=== PATIENT | female | born 1935 | race Caucasian/White ===

== ENCOUNTER 2017-07-09 10:27 | Observation (INO) | payer MEDICARE, OTHER ==
[~2017-07-09 10:27] MED LIST: DIGOXIN 0.125 MG TABLET PO SCH
--- NOTE | 2017-07-09 10:48 | ER Document Report ---
ED Syncope and Near Syncope - General Stated Complaint: DIZZINESS Time Seen by Provider: 07/09/17 10:41 Mode of Arrival: Medic Information source: Patient TRAVEL OUTSIDE OF THE [place] IN LAST 30 DAYS: No - HPI Patient complains to provider of: Nearly fainting Episode witnessed (by whom): Yes - DAUGHTER Single episoded occurred: THIS AM Symptoms prior to episode: Dizziness, Lightheaded. No: Chest pain, Nausea/ vomiting, Palpitations, Racing heart, Short of breath Duration of preceeding symptoms: 1 MIN. Position/Activity at time of episode: Standing Quality of pain: No pain Context: Almost passed out, [place] faint. 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 - Related Data Allergies/Adverse Reactions: No Known Allergies Allergy (Unverified 07/09/17 10:53) Home Medications: Current Home Medications Amlodipine Besylate 10 mg PO DAILY 07/09/17 [History] Clopidogrel Bisulfate [Clopidogrel] 75 mg PO DAILY 07/09/17 [History] Digoxin [Digox] 250 mcg PO DAILY 07/09/17 [History] Famotidine 40 mg PO DAILY 07/09/17 [History] Furosemide [Lasix] 40 mg PO DAILY 07/09/17 [History] Lansoprazole 30 mg PO DAILY 07/09/17 [History] Metoprolol Tartrate [Lopressor] 50 mg PO BID 07/09/17 [History] Past Medical History - General Information source: Patient - Social History Smoking Status: Never Smoker Cigarette use (# per day): No Chew tobacco use (# tins/day): No Smoking Education Provided: No Frequency of alcohol use: None Drug Abuse: None Lives with: Family Family History: Reviewed & Not Pertinent Patient has suicidal ideation: No Patient has homicidal ideation: No - Past Medical History Cardiac Medical History: Reports: Hx Atrial Fibrillation, Hx Hypertension Pulmonary Medical History: Reports: None Neurological Medical History: Reports: None Endocrine Medical History: Reports: None Renal/ Medical History: Reports: None Malignancy Medical History: Reports: None GI Medical History: Reports: None Psychiatric Medical History: Reports: None Review of Systems - Review of Systems Constitutional: Weakness EENT: No symptoms reported Cardiovascular: See HPI Respiratory: No symptoms reported Gastrointestinal: No symptoms reported Genitourinary: No symptoms reported Musculoskeletal: No symptoms reported Skin: No symptoms reported Neurological/Psychological: No symptoms reported Physical Exam - Vital signs Vitals: Resp Pulse Ox 19 98 07/09/17 10:54 07/09/17 10:54 Interpretation: Normal - General General appearance: Appears well, Alert In distress: None - HEENT Head: Normocephalic Eyes: Normal Conjunctiva: Normal Ears: Normal Nasal: Normal Mouth/Lips: Other - POOR DENTITION Neck: Normal - Respiratory Respiratory status: No respiratory distress Breath sounds: Normal - Cardiovascular Rhythm: Irregularly irregular Heart sounds: Normal auscultation Murmur: No - Abdominal Inspection: Normal Distension: No distension Bowel sounds: Normal - Back Back: Normal - Extremities General upper extremity: Normal inspection General lower extremity: Normal inspection. No: Edema - Neurological Neuro grossly intact: Yes Cognition: Normal Orientation: AAOx4 - Psychological Associated symptoms: Normal affect, Normal mood - Skin Skin Temperature: Warm Skin Moisture: Dry Skin Color: Normal Skin Turgor: Elastic Course - Vital Signs Vital signs: Temp Pulse Resp BP Pulse Ox 21 H 118/67 100 07/09/17 13:00 07/09/17 12:01 07/09/17 13:00 - Laboratory Result Diagrams: 07/09/17 11:00 07/09/17 11:00 Laboratory results interpreted by me: 07/09/17 11:00 BUN 33 H Creatinine 1.68 H Est GFR ( Amer) 35 L Est GFR (Non-Af Amer) 29 L Glucose 137 H Direct Bilirubin 0.5 H AST 39 H Total Protein 8.9 H - Diagnostic Test Radiology reviewed: Image reviewed, Reports reviewed - EKG Interpretation by Me EKG shows normal: abnormal: Sinus rhythm Rate: Normal Rhythm: A.Fib, PVC's - Consults DR. BARNEY Time consulted: 13:08 Consulted provider: will see as inpatient Discharge - Discharge Clinical Impression: Symptomatic bradycardia, Atrial fibrillation with controlled ventricular response Condition: Good Disposition: ADMITTED OBSERVATION Admitting Provider: Eileen Unit Admitted: Telemetry
--- NOTE | 2017-07-09 10:57 | EKG REPORT ---
SEVERITY:- ABNORMAL ECG - ATRIAL FIBRILLATION, V PACED BEATS PAIRED VENTRICULAR PREMATURE COMPLEXES NONSPECIFIC T ABNORMALITIES, DIFFUSE LEADS : Confirmed by: Eliecer Martinez 09-Jul-2017 10:56:10
[2017-07-09 11:16] LABS: ABSOLUTE EOSINOPHILS # (AUTO) 0.2 10^3/uL (0.0-0.6); ABSOLUTE LYMPHOCYTES (AUTO) 0.9 10^3/uL (0.5-4.7); ABSOLUTE MONOCYTES (AUTO) 0.5 10^3/uL (0.1-1.4); ABSOLUTE NEUT (AUTO) 4.7 10^3/uL (1.7-8.2); BASOPHILS % (AUTO) 0.7 % (0-2); EOSINOPHILS % (AUTO) 2.8 % (0-6); HEMATOCRIT 40.5 % (36.0-47.0); HEMOGLOBIN 13.6 g/dL (12.0-15.5); HGB HCT DIFFERENCE 0.3; LYMPHOCYTES % (AUTO) 14.7 % (13-45); MEAN CORPUSCULAR HEMOGLOBIN 30.6 pg (27.0-33.4); MEAN CORPUSCULAR HGB CONC 33.5 g/dL (32.0-36.0); MEAN CORPUSCULAR VOLUME 92 fl (80-97); MONOCYTES % (AUTO) 7.3 % (3-13); RED BLOOD COUNT 4.43 10^6/uL (3.72-5.28); RED CELL DISTRIBUTION WIDTH 13.9 % (11.5-14.0); SEGMENTED NEUTROPHILS % (AUTO) 74.5 % (42-78); WHITE BLOOD COUNT 6.3 10^3/uL (4.0-10.5)
[2017-07-09 11:48] LABS: CREATINE KINASE MB 1.34 ng/mL (<4.55); TROPONIN I 0.016 ng/mL
[2017-07-09 11:52] LABS: ALANINE AMINOTRANSFERASE 20 U/L (9-52); ALBUMIN 4.6 g/dL (3.5-5.0); ALKALINE PHOSPHATASE 92 U/L (38-126); ANION GAP 13 (5-19); ASPARTATE AMINO TRANSFERASE 39 U/L (14-36); BILIRUBIN,DIRECT 0.5 mg/dL (0.0-0.4); BILIRUBIN,TOTAL 1.2 mg/dL (0.2-1.3); BLOOD UREA NITROGEN 33 mg/dL (7-20); CALCIUM 9.8 mg/dL (8.4-10.2); CARBON DIOXIDE 28 mmol/L (22-30); CHLORIDE 101 mmol/L (98-107); CREATINE KINASE 61 U/L (30-135); CREATININE RESULT 1.68 mg/dL (0.52-1.25); GLUCOSE 137 mg/dL (75-110); POTASSIUM 4.4 mmol/L (3.6-5.0); SODIUM 142.1 mmol/L (137-145); TOTAL PROTEIN 8.9 g/dL (6.3-8.2)
--- NOTE | 2017-07-09 12:06 | RADIOLOGY REPORT (SQ) ---
EXAM DESCRIPTION: CHEST SINGLE VIEW COMPLETED DATE/TIME: 07/09/2017 11:59 am REASON FOR STUDY: SYNCOPE COMPARISON: None. EXAM PARAMETERS: NUMBER OF VIEWS: One view. TECHNIQUE: Single frontal radiographic view of the chest acquired. RADIATION DOSE: NA LIMITATIONS: None. FINDINGS: LUNGS AND PLEURA: No opacities, masses or pneumothorax. No pleural effusion. MEDIASTINUM AND HILAR STRUCTURES: No masses. Contour normal. HEART AND VASCULAR STRUCTURES: Cardiomegaly without CHF. BONES: Dextroscoliosis. HARDWARE: None in the chest. OTHER: No other significant finding. IMPRESSION: 1. Cardiomegaly without CHF. 2. Scoliosis. TECHNICAL DOCUMENTATION: JOB ID: [id number]
[2017-07-09] MEDS ORDERED: FUROSEMIDE 40 MG TABLET PO SCH (18:00)
[2017-07-09] MEDS ORDERED: DIGOXIN 0.25 MG TABLET PO SCH ×2 (18:00)
--- NOTE | 2017-07-09 19:34 | PDOC H&P ---
History of Present Illness Admission Date/PCP: 07/09/17 13:32 VALENCIA ECTOR Patient complains of: Dizziness History of Present Illness: ANA DEWITT is a 82 year old female known to my practice brought to ED by medic due to reported near syncope. Daughter reported that patient have been sleeping more than usual for the pass 2 days been out of work. She claimed that she was sleeping more than usual although easily arouse. She participated in her usual preparation for work earlier today. While at her workplace and standing, coworker reported to her that patient became drowsy and rolling her eyes backward. She did not completely loss consciousness. Patient did not remember anything about the event but became more interactive after arriving in the ED. She denied any chest pain, palpitation, diaphoresis, nausea or vomiting. No reported fever or chills. No reported seizure like activity, fecal or urinary incontinence. Her initial evaluation in the ED was remarkable for bradycardial. Her morbidity include chronic atrial fibrillation, hypertension and Osteoarthritis. Past Medical History Cardiac Medical History: Reports: Atrial Fibrillation, Hypertension Pulmonary Medical History: Reports: None Neurological Medical History: Reports: None Endocrine Medical History: Reports: None Renal/ Medical History: Reports: None Malignancy Medical History: Reports: None GI Medical History: Reports: None Psychiatric Medical History: Reports: None Denies: Depression Social History Lives with: Family Smoking Status: Former Smoker Frequency of Alcohol Use: None Hx Recreational Drug Use: No Drugs: None Hx Prescription Drug Abuse: No - Advance Directive Resuscitation Status: Full Code Family History Family History: Reviewed & Not Pertinent Parental Family History Reviewed: Yes Children Family History Reviewed: Yes Sibling(s) Family History Reviewed.: Yes Medication/Allergy Home Medications: Amlodipine Besylate [Norvasc 10 mg Tablet] 10 mg PO DAILY 07/09/17 Clopidogrel Bisulfate [Plavix 75 mg Tablet] 75 mg PO DAILY 07/09/17 Digoxin [Digox] 125 mcg PO Q2D 07/09/17 Digoxin [Digox] 250 mcg PO Q2D 07/09/17 Famotidine [Pepcid 40 mg Tablet] 40 mg PO DAILY 07/09/17 Furosemide [Lasix] 40 mg PO Q2D 07/09/17 Lansoprazole [Prevacid] 30 mg PO DAILY 07/09/17 Metoprolol Tartrate [Lopressor] 75 mg PO Q12 07/09/17 Allergies/Adverse Reactions: No Known Allergies Allergy (Unverified 07/09/17 10:53) Review of Systems Constitutional: ABSENT: chills, fever(s), headache(s), weight gain, weight loss Eyes: PRESENT: visual disturbances - correction of acuity with glasses Ears: ABSENT: hearing changes Nose, Mouth, and Throat: ABSENT: headache(s), mouth pain, sore throat, vertigo Cardiovascular: ABSENT: chest pain, dyspnea on exertion, edema, orthropnea, palpitations Respiratory: ABSENT: cough, hemoptysis Gastrointestinal: ABSENT: abdominal pain, constipation, diarrhea, hematemesis, hematochezia, nausea, vomiting Genitourinary: ABSENT: dysuria, hematuria Musculoskeletal: ABSENT: joint swelling Integumentary: ABSENT: rash, wounds Neurological: PRESENT: abnormal gait - ambulate with straight cane assistance, dizziness, memory loss - longstanding, weakness - generalized. ABSENT: as per HPI, abnormal movements, abnormal speech, confusion, convulsions, focal weakness , frequent falls, lack of coordination, numbness, paresthesias, restless legs, syncope, tingling, tremor(s), vertigo, other Psychiatric: ABSENT: anxiety, depression, homidical ideation, suicidal ideation Endocrine: ABSENT: cold intolerance, heat intolerance, menstrual abnormalities, polydipsia, polyuria Hematologic/Lymphatic: ABSENT: easy bleeding, easy bruising, lymphadenopathy Physical Exam Vital Signs: Temp Pulse Resp BP Pulse Ox 98.6 F 82 16 140/69 H 99 07/09/17 16:00 07/09/17 16:00 07/09/17 16:00 07/09/17 16:00 07/09/17 16:00 Intake & Output 07/08/17 07/09/17 07/10/17 06:59 06:59 06:59 Weight 66.4 kg General appearance: PRESENT: no acute distress, cooperative Head exam: PRESENT: atraumatic, normocephalic Eye exam: PRESENT: conjunctiva pink, EOMI, PERRLA. ABSENT: scleral icterus Ear exam: PRESENT: normal external ear exam Mouth exam: PRESENT: moist, tongue midline Teeth exam: PRESENT: poor dentation Throat exam: ABSENT: post pharyngeal erythema, tonsillar erythema, tonsillar exudate, tonsillogmegaly, other Neck exam: PRESENT: full ROM. ABSENT: carotid bruit, JVD, lymphadenopathy, thyromegaly Respiratory exam: PRESENT: clear to auscultation dionne Cardiovascular exam: PRESENT: irregular rhythm Pulses: PRESENT: normal dorsalis pedis pul, +2 pedal pulses bilateral Vascular exam: PRESENT: normal capillary refill. ABSENT: pallor GI/Abdominal exam: PRESENT: normal bowel sounds, soft. ABSENT: distended, guarding, mass, organolmegaly, rebound, tenderness Rectal exam: PRESENT: deferred Gentrourinary exam: ABSENT: ecchymosis, erythema, lacerations, lesions, urethral discharge, indwelling catheter, other Extremities exam: ABSENT: pedal edema Musculoskeletal exam: PRESENT: deformity - related to multiple joints involvement with arthritis Neurological exam: PRESENT: alert, awake, oriented to person, oriented to place , oriented to time, oriented to situation, CN II-XII grossly intact. ABSENT: motor sensory deficit Psychiatric exam: PRESENT: appropriate affect, normal mood. ABSENT: homicidal ideation, suicidal ideation Skin exam: PRESENT: dry, intact, warm. ABSENT: cyanosis, rash Results Laboratory Results: I reviewed on [employer] and form significant part of my medical decision making. Impressions: Chest X-Ray 07/09/17 10:54 IMPRESSION: 1. Cardiomegaly without CHF. 2. Scoliosis. Assessment & Plan - Diagnosis (1) Symptomatic bradycardia Is this a current diagnosis for this admission?: YesPlan: See admitting attending physician orders. (2) Atrial fibrillation with controlled ventricular response Is this a current diagnosis for this admission?: YesPlan: See admitting attending physician orders. (3) HTN (hypertension) Qualifiers: Hypertension type: essential hypertension Qualified Code(s): I10 - Essential (primary) hypertension Is this a current diagnosis for this admission?: YesPlan: See admitting attending physician orders. (4) Osteoarthritis of AC (acromioclavicular) joints, bilateral Is this a current diagnosis for this admission?: YesPlan: See admitting attending physician orders. (5) Senile debility Is this a current diagnosis for this admission?: YesPlan: See admitting attending physician orders. - Time Time Spent: 50 to 70 Minutes Medications reviewed and adjusted accordingly: Yes Anticipated discharge: Home Within: within 48 hours - Plan Summary Plan Summary: See admitting attending physician orders.
[2017-07-09 21:01] LABS: CREATINE KINASE MB 1.13 ng/mL (<4.55); TROPONIN I 0.012 ng/mL
[2017-07-09] MEDS: METOPROLOL TARTRATE 50 MG TABLET PO SCH (21:48)
[2017-07-09] MEDS: NORMAL SALINE 1000 ML 1,000 ML IV PRN (21:49)
[2017-07-09] MEDS ORDERED: METOPROLOL TARTRATE 50 MG TABLET PO SCH (22:00)
[2017-07-10 02:47] LABS: CREATINE KINASE MB 0.92 ng/mL (<4.55); TROPONIN I 0.014 ng/mL
[2017-07-10 02:49] LABS: ANION GAP 10 (5-19); BLOOD UREA NITROGEN 32 mg/dL (7-20); CALCIUM 9.2 mg/dL (8.4-10.2); CARBON DIOXIDE 26 mmol/L (22-30); CHLORIDE 104 mmol/L (98-107); CREATINE KINASE 48 U/L (30-135); CREATININE RESULT 1.28 mg/dL (0.52-1.25); GLUCOSE 91 mg/dL (75-110); POTASSIUM 3.8 mmol/L (3.6-5.0); SODIUM 140.4 mmol/L (137-145)
[2017-07-10] MEDS ORDERED: LANSOPRAZOLE 30 MG TAB.RAP.DR PO SCH (06:00)
--- NOTE | 2017-07-10 08:35 | PDOC PROGRESS REPORT ---
Subjective Progress Note for:: 07/10/17 Subjective:: No chest pain or difficulty with breathing. No fever or chills. No nausea, vomiting or abdominal pain. Remain on IV normal saline infusion. Presently off Digoxin usage. 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 Physical Exam Vital Signs: Temp Pulse Resp BP Pulse Ox 98.4 F 73 16 137/70 H 95 07/10/17 03:33 07/10/17 07:00 07/10/17 03:33 07/10/17 03:33 07/10/17 03:33 Intake & Output 07/09/17 07/10/17 07/11/17 06:59 06:59 06:59 Intake Total 600 Balance 600 Weight 66.4 kg General appearance: PRESENT: no acute distress, well-developed, well-nourished Head exam: PRESENT: atraumatic, normocephalic Eye exam: PRESENT: conjunctiva pink, EOMI, PERRLA. ABSENT: scleral icterus Mouth exam: PRESENT: moist Teeth exam: PRESENT: poor dentation Respiratory exam: PRESENT: clear to auscultation dionne Cardiovascular exam: PRESENT: irregular rhythm Vascular exam: PRESENT: normal capillary refill. ABSENT: pallor GI/Abdominal exam: PRESENT: normal bowel sounds, soft. ABSENT: distended, guarding, mass, organolmegaly, rebound, tenderness Extremities exam: ABSENT: pedal edema Musculoskeletal exam: PRESENT: deformity - related to multiple joints involvment with arthritis Neurological exam: PRESENT: alert, awake, oriented to person, oriented to place , oriented to time, oriented to situation, CN II-XII grossly intact. ABSENT: motor sensory deficit Psychiatric exam: PRESENT: appropriate affect, normal mood. ABSENT: homicidal ideation, suicidal ideation Skin exam: PRESENT: dry, intact, warm. ABSENT: cyanosis, rash Results Laboratory Results: 07/10/17 01:50 07/09/17 07/10/17 20:11 01:50 Sodium 140.4 Potassium 3.8 Chloride 104 Carbon Dioxide 26 Anion Gap 10 BUN 32 H Creatinine 1.28 H Est GFR ( Amer) 48 L Est GFR (Non-Af Amer) 40 L Glucose 91 Calcium 9.2 Magnesium 2.1 07/09/17 07/09/17 07/10/17 20:11 20:11 01:50 Creatine Kinase 52 48 CK-MB (CK-2) 1.13 Troponin I 0.012 07/10/17 01:50 Creatine Kinase CK-MB (CK-2) 0.92 Troponin I 0.014 Impressions: Chest X-Ray 07/09/17 10:54 IMPRESSION: 1. Cardiomegaly without CHF. 2. Scoliosis. Assessment & Plan - Diagnosis (1) Symptomatic bradycardia Is this a current diagnosis for this admission?: YesPlan: See attending physician orders. (2) Atrial fibrillation with controlled ventricular response Is this a current diagnosis for this admission?: YesPlan: See attending physician orders. (3) HTN (hypertension) Qualifiers: Hypertension type: essential hypertension Qualified Code(s): I10 - Essential (primary) hypertension Is this a current diagnosis for this admission?: YesPlan: See attending physician orders. (4) Osteoarthritis of AC (acromioclavicular) joints, bilateral Is this a current diagnosis for this admission?: YesPlan: See attending physician orders. (5) Senile debility Is this a current diagnosis for this admission?: YesPlan: See attending physician orders. Follow up on PT evaluation. (6) Prerenal azotemia Is this a current diagnosis for this admission?: YesPlan: Improving renal indices with IV fluid hydration. Continue current management. - Time Time Spent with patient: 25-34 minutes Medications reviewed and adjusted accordingly: Yes Anticipated discharge: Home with Homehealth Within: within 24 hours - Plan Summary Plan Summary: Continue on all current medication management. I did discussion possible discharge home tomorrow.
[2017-07-10] MEDS: METOPROLOL TARTRATE 50 MG TABLET PO SCH ×2 (09:37→21:05)
[2017-07-10] MEDS: CLOPIDOGREL BISULFATE 75 MG TABLET PO SCH (09:39)
[2017-07-10] MEDS: FAMOTIDINE 20 MG TABLET PO SCH (09:39)
[2017-07-10] MEDS: AMLODIPINE BESYLATE 10 MG TABLET PO SCH (09:39)
[2017-07-10 09:52] LABS: TROPONIN I 0.013 ng/mL
[2017-07-10] MEDS: NORMAL SALINE 1000 ML 1,000 ML IV PRN (17:39)
[2017-07-11 06:31] LABS: ANION GAP 9 (5-19); BLOOD UREA NITROGEN 25 mg/dL (7-20); CALCIUM 9.2 mg/dL (8.4-10.2); CARBON DIOXIDE 30 mmol/L (22-30); CHLORIDE 103 mmol/L (98-107); GLUCOSE 86 mg/dL (75-110); POTASSIUM 3.6 mmol/L (3.6-5.0)
[2017-07-11] MEDS: METOPROLOL TARTRATE 50 MG TABLET PO SCH (09:35)
[2017-07-11] MEDS: FAMOTIDINE 20 MG TABLET PO SCH (09:37)
[2017-07-11] MEDS: AMLODIPINE BESYLATE 10 MG TABLET PO SCH (09:37)
[2017-07-11] MEDS: CLOPIDOGREL BISULFATE 75 MG TABLET PO SCH (09:37)
[2017-07-11] MEDS ORDERED: DIGOXIN 0.25 MG TABLET PO SCH (10:00)
[2017-07-11] MEDS ORDERED: POTASSIUM CHLORIDE 10 MEQ TABLET.SA PO ONE (10:00)
--- NOTE | 2017-07-11 16:11 | PDOC DISCHARGE SUMMARY ---
General - Admit/Disc Date/PCP Admission Date/Primary Care Provider: 07/09/17 13:32 VALENCIA ECTOR Discharge Date: 07/11/17 - Discharge Diagnosis (1) Symptomatic bradycardia Is this a current diagnosis for this admission?: Yes (2) Atrial fibrillation with controlled ventricular response Is this a current diagnosis for this admission?: Yes (3) HTN (hypertension) Is this a current diagnosis for this admission?: Yes (4) Osteoarthritis of AC (acromioclavicular) joints, bilateral Is this a current diagnosis for this admission?: Yes (5) Senile debility Is this a current diagnosis for this admission?: Yes (6) Prerenal azotemia Is this a current diagnosis for this admission?: Yes - Additional Information Resuscitation Status: Full Code Discharge Diet: Cardiac Discharge Activity: Activity As Tolerated Home Medications: Amlodipine Besylate [Norvasc 10 mg Tablet] 10 mg PO DAILY 07/09/17 Clopidogrel Bisulfate [Plavix 75 mg Tablet] 75 mg PO DAILY 07/09/17 Famotidine [Pepcid 40 mg Tablet] 40 mg PO DAILY 07/09/17 Furosemide [Lasix] 40 mg PO Q2D 07/09/17 Lansoprazole [Prevacid] 30 mg PO DAILY 07/09/17 Metoprolol Tartrate [Lopressor] 75 mg PO Q12 07/09/17 Potassium Chloride 10 meq PO DAILY #30 tablet.er 07/11/17 History of Present Illness History of Present Illness: ANA DEWITT is a 82 year old female known to my practice brought to ED by medic due to reported near syncope. Daughter reported that patient have been sleeping more than usual for the pass 2 days been out of work. She claimed that she was sleeping more than usual although easily arouse. She participated in her usual preparation for work earlier today. While at her workplace and standing, coworker reported to her that patient became drowsy and rolling her eyes backward. She did not completely loss consciousness. Patient did not remember anything about the event but became more interactive after arriving in the ED. She denied any chest pain, palpitation, diaphoresis, nausea or vomiting. No reported fever or chills. No reported seizure like activity, fecal or urinary incontinence. Her initial evaluation in the ED was remarkable for bradycardial. Her morbidity include chronic atrial fibrillation, hypertension and Osteoarthritis. Hospital Course Hospital Course: Patient was taken off Amlodipine and eventually restarted but taken off Digoxin during this hospitalization due to persistent bradycardia. She was maintained on IV hydration with normal saline with resolution of her pre-renal azotemia. She denied any chest pain, difficulty with breathing, palpitation, nausea, vomiting, or abdominal pain. Physical Exam Vital Signs: Temp Pulse Resp BP Pulse Ox 98.7 F 77 12 109/65 100 07/11/17 12:20 07/11/17 12:20 07/11/17 12:20 07/11/17 12:20 07/11/17 12:20 Intake & Output 07/10/17 07/11/17 07/12/17 06:59 06:59 06:59 Intake Total 600 2357 Output Total 800 Balance 600 1557 Weight 66.4 kg 63.1 kg Physical Exam: General appearance: PRESENT: no acute distress, well-developed, well-nourished Head exam: PRESENT: atraumatic, normocephalic Eye exam: PRESENT: conjunctiva pink, EOMI, PERRLA. ABSENT: scleral icterus Mouth exam: PRESENT: moist Teeth exam: PRESENT: poor dentation Respiratory exam: PRESENT: clear to auscultation dionne Cardiovascular exam: PRESENT: irregular rhythm Vascular exam: PRESENT: normal capillary refill. ABSENT: pallor GI/Abdominal exam: PRESENT: normal bowel sounds, soft. ABSENT: distended, guarding, mass, organomegaly, rebound, tenderness Extremities exam: ABSENT: pedal edema Musculoskeletal exam: PRESENT: deformity - related to multiple joints involvement with arthritis Neurological exam: PRESENT: alert, awake, oriented to person, oriented to place , oriented to time, oriented to situation, CN II-XII grossly intact. ABSENT: motor sensory deficit Psychiatric exam: PRESENT: appropriate affect, normal mood. ABSENT: homicidal ideation, suicidal ideation Skin exam: PRESENT: dry, intact, warm. ABSENT: cyanosis, rash Results Laboratory Results: 07/11/17 06:00 07/11/17 07/11/17 04:37 06:00 Sodium Cancelled 142.0 Potassium Cancelled 3.6 Chloride Cancelled 103 Carbon Dioxide Cancelled 30 Anion Gap Cancelled 9 BUN Cancelled 25 H Creatinine Cancelled 1.00 Est GFR ( Amer) Cancelled > 60 Est GFR (Non-Af Amer) Cancelled 53 L Glucose Cancelled 86 Calcium Cancelled 9.2 07/09/17 07/09/17 07/10/17 20:11 20:11 01:50 Creatine Kinase 52 48 CK-MB (CK-2) 1.13 Troponin I 0.012 07/10/17 07/10/17 07/10/17 01:50 08:53 08:53 Creatine Kinase 55 CK-MB (CK-2) 0.92 1.00 Troponin I 0.014 0.013 Impressions: Chest X-Ray 07/09/17 10:54 IMPRESSION: 1. Cardiomegaly without CHF. 2. Scoliosis. Qualifiers PATEINT BEING DISCHARGED WITH ANY OF THE FOLLOWING DIAGNOSIS?: No VTE patient discharged on overlapping Therapy?: No Reason(s) for not prescribing Overlap Therapy:: Medical Contraindication - on Clopidogrel theray, Plan Discharge Plan: Discharge home today with discontinuation of Digoxin. I will start her on potassium chloride 10 mEq p.o daily in view of her furosemide usage and arrhythmia. Her pre-renal azotemia did resolved with IV hydration. I will decrease her Metoprolol Tartrated to 50 mg po q 12hours in view of her episodes of bradycardial.She participated in physical therapy with request for a rolling walker upon discharge. I did discuss at length with patient and daughter regarding post-hospital care during my consultation time.
[2017-07-11 16:15] VITALS: BP 111/52
== END 2017-07-11 16:41 | disposition home or self-care (01) ==
LOC: ER 10:27 → EH 13:32 → 4W 15:00 → 4S 07-10 09:01
PROVIDERS: ADMIT Internal Medicine Geriatric Medicine; ATTEND Internal Medicine Geriatric Medicine
DX: R00.1 Bradycardia, unspecified (principal); I48.2 Chronic atrial fibrillation; I10 Essential (primary) hypertension; M19.012 Primary osteoarthritis, left shoulder; M19.011 Primary osteoarthritis, right shoulder; R54 Age-related physical debility; R79.89 Other specified abnormal findings of blood chemistry; H53.9 Unspecified visual disturbance; R26.9 Unspecified abnormalities of gait and mobility; R41.3 Other amnesia; R53.1 Weakness; M13.89 Other specified arthritis, multiple sites; Z79.899 Other long term (current) drug therapy; Z79.02 Long term (current) use of antithrombotics/antiplatelets; Z87.891 Personal history of nicotine dependence
CPT/HCPCS: 93005; 99285; 36415 ×3; 82553 ×2; 82550 ×2; 80162; 83735; 85025; 80048 ×2; 80053; 84484 ×2; 71010; 93010; 97161; G0378 ×4; A9270 ×9; J7030 ×2; G8978; G8979; G8980

== ENCOUNTER 2018-10-28 18:24 | Observation (INO) | payer MEDICARE, OTHER ==
[2018-10-28 18:58] LABS: ABSOLUTE EOSINOPHILS # (AUTO) 0.4 10^3/uL (0.0-0.6); ABSOLUTE LYMPHOCYTES (AUTO) 0.7 10^3/uL (0.5-4.7); ABSOLUTE MONOCYTES (AUTO) 0.5 10^3/uL (0.1-1.4); ABSOLUTE NEUT (AUTO) 3.8 10^3/uL (1.7-8.2); BASOPHILS % (AUTO) 0.8 % (0-2); HEMATOCRIT 35.2 % (36.0-47.0); HEMOGLOBIN 11.8 g/dL (12.0-15.5); LYMPHOCYTES % (AUTO) 13.2 % (13-45); MEAN CORPUSCULAR HEMOGLOBIN 30.4 pg (27.0-33.4); MEAN CORPUSCULAR HGB CONC 33.6 g/dL (32.0-36.0); MEAN CORPUSCULAR VOLUME 90 fl (80-97); MONOCYTES % (AUTO) 9.7 % (3-13); PLATELET COUNT 245 10^3/uL (150-450); RED CELL DISTRIBUTION WIDTH 14.5 % (11.5-14.0); SEGMENTED NEUTROPHILS % (AUTO) 68.3 % (42-78); TOTAL CELLS COUNTED % (AUTO) 100 %; WHITE BLOOD COUNT 5.6 10^3/uL (4.0-10.5)
--- NOTE | 2018-10-28 19:01 | EKG REPORT ---
SEVERITY:- ABNORMAL ECG - ATRIAL FIBRILLATION, V-RATE 93-97 PROLONGED QT INTERVAL NONSPECIFIC ST-T CHANGES- INFERIOR LEADS : Confirmed by: Sam Merlos MD 28-Oct-2018 18:59:53
[2018-10-28 19:10] LABS: ALANINE AMINOTRANSFERASE 13 U/L (9-52); ALBUMIN 3.5 g/dL (3.5-5.0); ALKALINE PHOSPHATASE 51 U/L (38-126); ANION GAP 11 (5-19); ASPARTATE AMINO TRANSFERASE 22 U/L (14-36); BILIRUBIN,DIRECT 0.3 mg/dL (0.0-0.4); BILIRUBIN,TOTAL 0.7 mg/dL (0.2-1.3); BLOOD UREA NITROGEN 36 mg/dL (7-20); CALCIUM 9.3 mg/dL (8.4-10.2); CARBON DIOXIDE 26 mmol/L (22-30); CHLORIDE 105 mmol/L (98-107); CREATINE KINASE 43 U/L (30-135); GLUCOSE 119 mg/dL (75-110); POTASSIUM 4.7 mmol/L (3.6-5.0); SODIUM 141.8 mmol/L (137-145); TOTAL PROTEIN 6.7 g/dL (6.3-8.2)
[2018-10-28] MEDS ORDERED: NORMAL SALINE 1000 ML 1,000 ML IV ONE (19:15)
[2018-10-28 19:22] LABS: CREATINE KINASE MB 0.72 ng/mL (<4.55); TROPONIN I < 0.012 ng/mL
--- NOTE | 2018-10-28 19:34 | ER Document Report ---
ED Syncope and Near Syncope - General Chief Complaint: Syncope Stated Complaint: SYNCOPAL EPISODE Time Seen by Provider: 10/28/18 19:04 Mode of Arrival: Stretcher Information source: Patient, Relative TRAVEL OUTSIDE OF THE [place] IN LAST 30 DAYS: No - HPI Patient complains to provider of: Fainting Episode witnessed (by whom): Yes - Daughter Multiple episodes (how many): 2 When did episodes begin: Just prior to arrival Symptoms prior to episode: Dizziness Position/Activity at time of episode: Sitting Quality of pain: No pain Context: Became unresponsive, Collapsed Injury location: Head, LLE Current symptoms: None/feels back to normal Similar symptoms previously: No Recently seen / treated by doctor: No Notes: Patient is an 83-year-old female brought to the emergency room by EMS after having to syncopal episodes while having bowel movements this evening, during the first episode patient's daughter was in another room and heard a loud thump , when she went to the bathroom her mother was on the floor and required assistance getting up, EMS was called to the house and evaluated patient and the decision was made not to come to the emergency room, however shortly thereafter patient went to the bathroom to have another bowel movement and when the daughter heard a loud thump this time she went to the room to find patient unresponsive but sitting on the commode, she states for approximately 15-20 minutes patient was not fully awake and alert, having head bobbing type of activity but no seizure activity was noted, patient reports that she may have hit her head during the first fall, and she complains of some pain to her left hip, daughter reports that patient did states she was dizzy just prior to the second episode - Related Data Allergies/Adverse Reactions: No Known Allergies Allergy (Verified 10/28/18 18:55) Past Medical History - General Information source: Patient - Social History Smoking Status: Unknown if Ever Smoked Family History: Reviewed & Not Pertinent Patient has suicidal ideation: No Patient has homicidal ideation: No - Past Medical History Cardiac Medical History: Reports: Hx Atrial Fibrillation, Hx Hypertension Renal/ Medical History: Denies: Hx Peritoneal Dialysis Psychiatric Medical History: Denies: Hx Depression Review of Systems - Review of Systems Constitutional: No symptoms reported EENT: No symptoms reported Cardiovascular: Syncope Respiratory: No symptoms reported Gastrointestinal: No symptoms reported Genitourinary: No symptoms reported Female Genitourinary: No symptoms reported Musculoskeletal: No symptoms reported Skin: No symptoms reported Hematologic/Lymphatic: No symptoms reported Neurological/Psychological: No symptoms reported -: Yes All other systems reviewed and negative Physical Exam - Vital signs Vitals: Temp 97.6 F 10/28/18 18:40 Interpretation: Normal - General General appearance: Alert In distress: None - HEENT Head: Normocephalic, Atraumatic Eyes: Normal Conjunctiva: Normal Pupils: PERRL Pharynx: Normal Neck: Normal - Respiratory Respiratory status: No respiratory distress Chest status: Nontender Breath sounds: Normal Chest palpation: Normal - Cardiovascular Rhythm: Regular Heart sounds: Normal auscultation Murmur: No - Abdominal Inspection: Normal Distension: No distension Bowel sounds: Normal Tenderness: Nontender Organomegaly: No organomegaly - Back Back: Normal, Nontender - Extremities General upper extremity: Normal inspection, Nontender, Normal color, Normal ROM , Normal temperature General lower extremity: Normal color, Normal ROM, Normal temperature. No: Greta's sign Hip: Tender - Mild swelling and tenderness over the left lateral hip, full range of motion, distal sensation and motor is intact - Neurological Neuro grossly intact: Yes Cognition: Normal Orientation: AAOx4 [place] Coma Scale Eye Opening: Spontaneous [place] Coma Scale Verbal: Oriented [place] Coma Scale Motor: Obeys Commands Tyrel Coma Scale Total: 15 Speech: Normal Motor strength normal: LUE, RUE, LLE, RLE Sensory: Normal - Psychological Associated symptoms: Normal affect, Normal mood - Skin Skin Temperature: Warm Skin Moisture: Dry Skin Color: Normal Course - Re-evaluation Re-evalutation: 10/28/18 21:36 Patient was discussed with Dr. Barney who agrees with observation admission 10/28/18 21:46 Patient with 2 syncopal episodes, both of them occurred while she was having a bowel movement, however during the second 1 her daughter reports it took her about 15-20 minutes to come back around completely, laboratory evaluation in the emergency department reveals a creatinine of 1.77 which is not patient's baseline, her EKG is consistent with A. fib with 2 long pauses on them, repeat EKG does not reveal these long pauses once again, however given patient's symptoms, her AK I and her abnormal EKG she was discussed with primary care provider who agrees to make an observation admission to the [facility] for further evaluation and treatment - Vital Signs Vital signs: Temp Pulse Resp BP Pulse Ox 97.6 F 20 108/58 L 100 10/28/18 18:40 10/28/18 21:16 10/28/18 21:16 10/28/18 21:01 - Laboratory Result Diagrams: 10/28/18 18:30 10/28/18 18:30 Laboratory results interpreted by me: 10/28/18 10/28/18 18:30 18:30 Hgb 11.8 L Hct 35.2 L RDW 14.5 H Eosinophils % 8.0 H BUN 36 H Creatinine 1.77 H Est GFR ( Amer) 33 L Est GFR (Non-Af Amer) 27 L Glucose 119 H - Diagnostic Test Radiology reviewed: Image reviewed, Reports reviewed - EKG Interpretation by Me Rate: Normal Rhythm: A.Fib Discharge - Discharge Clinical Impression: Atrial fibrillation with controlled ventricular response Syncope Qualifiers: Syncope type: unspecified Qualified Code(s): R55 - Syncope and collapse Condition: Fair Disposition: ADMITTED OBSERVATION Admitting Provider: Eileen Unit Admitted: IMCU Referrals: VALENCIA BARNEY MD [Primary Care Provider] - Follow up as needed
[2018-10-28 19:37] LABS: INTERNATIONAL RATION (INR) 1.03
[2018-10-28 19:38] LABS: PARTIAL THROMBOPLASTIN TIME 31.9 SEC (23.5-35.8)
--- NOTE | 2018-10-28 20:21 | RADIOLOGY REPORT (SQ) ---
EXAM DESCRIPTION: HIP LEFT AP/LATERAL COMPLETED DATE/TIME: 10/28/2018 8:13 pm REASON FOR STUDY: FALL COMPARISON: None. NUMBER OF VIEWS: Two views. TECHNIQUE: AP pelvis and additional frog-leg view of the left hip. LIMITATIONS: None. FINDINGS: MINERALIZATION: Normal. LEFT HIP: No fracture or dislocation. No worrisome bone lesions. RIGHT HIP: No fracture or dislocation. No worrisome bone lesions. PUBIS AND ISCHIUM: No fracture. PELVIS: No fracture. SACRUM: No fracture or dislocation. No worrisome bone lesions. LOWER LUMBAR SPINE: No fracture or dislocation. No worrisome bone lesions. No significant disc disea se. SOFT TISSUES: No findings. OTHER: No other significant finding. IMPRESSION: NEGATIVE STUDY OF THE LEFT HIP AND PELVIS. NO RADIOGRAPHIC EVIDENCE OF ACUTE INJURY. TECHNICAL DOCUMENTATION: JOB ID: [id number] [employer]- All Rights Reserved Reading location - IP/workstation name: [email or web address]
--- NOTE | 2018-10-28 20:47 | RADIOLOGY REPORT (SQ) ---
EXAM DESCRIPTION: CT HEAD WITHOUT COMPLETED DATE/TIME: 10/28/2018 8:29 pm REASON FOR STUDY: FALL COMPARISON: None. TECHNIQUE: Axial images acquired through the brain without intravenous contrast. Images reviewed wi th bone, brain and subdural windows. Additional sagittal and coronal reconstructions were generated. Images stored on PACS. All CT scanners at this facility use dose modulation, iterative reconstruction, and/or weight based d osing when appropriate to reduce radiation dose to as low as reasonably achievable (ALARA). [facility]: Dose Right [facility]: CareDose [facility]: Dose Right [facility]: Teradose 4D [facility]: Wear My Tags RADIATION DOSE: CT Rad equipment meets quality standard of care and radiation dose reduction techniq ues were employed. CTDIvol: 53.2 mGy. DLP: 1044 mGy-cm. mGy. LIMITATIONS: None. FINDINGS: VENTRICLES: Normal size and contour. CEREBRUM: No masses. No hemorrhage. No midline shift. No evidence for acute infarction. Normal gra y/white matter differentiation. No areas of low density in the white matter. CEREBELLUM: No masses. No hemorrhage. No alteration of density. No evidence for acute infarction. EXTRAAXIAL SPACES: No fluid collections. No masses. ORBITS AND GLOBE: No intra- or extraconal masses. Normal contour of globe without masses. CALVARIUM: No fracture. PARANASAL SINUSES: No fluid or mucosal thickening. SOFT TISSUES: No mass or hematoma. OTHER: No other significant finding. IMPRESSION: NORMAL BRAIN CT WITHOUT CONTRAST. EVIDENCE OF ACUTE STROKE: NO. COMMENT: Quality ID # 436: Final reports with documentation of one or more dose reduction techniques (e.g., Automated exposure control, adjustment of the mA and/or kV according to patient size, use of iterative reconstruction technique) TECHNICAL DOCUMENTATION: JOB ID: [id number] [employer] All Rights Reserved Reading location - IP/workstation name: [email or web address]
[2018-10-28 20:56] LABS: AMORPHOUS SEDIMENT,URINE TRACE /HPF; APPEARANCE,URINE CLEAR; BILIRUBIN,URINE NEGATIVE (NEGATIVE); COLOR,URINE STRAW; GLUCOSE, URINE NEGATIVE (NEGATIVE); KETONES,URINE NEGATIVE (NEGATIVE); LEUKOCYTE ESTERASE,URINE NEGATIVE (NEGATIVE); NITRITE,URINE NEGATIVE (NEGATIVE); PROTEIN,URINE NEGATIVE (NEGATIVE); URINE SPECIFIC GRAVITY 1.006; UROBILINOGEN,URINE NEGATIVE mg/dL (<2.0)
--- NOTE | 2018-10-29 07:42 | EKG REPORT ---
SEVERITY:- ABNORMAL ECG - ATRIAL FIBRILLATION, V-RATE 60-124 NONSPECIFIC T ABNORMALITIES, ANT-LAT LEADS : Confirmed by: Sam Merlos MD 29-Oct-2018 07:41:33
[2018-10-29] MEDS: NORMAL SALINE 1000 ML 1,000 ML IV PRN ×2 (09:02→18:46)
[2018-10-29] MEDS: AMLODIPINE BESYLATE 10 MG TABLET PO SCH (10:27)
[2018-10-29] MEDS: ENOXAPARIN SODIUM INJ 30 MG/0.3 ML DISP.SYRIN SUBCUT SCH (10:28)
[2018-10-29] MEDS: CLOPIDOGREL BISULFATE 75 MG TABLET PO SCH (10:28)
[2018-10-29] MEDS: METOPROLOL TARTRATE 50 MG TABLET PO SCH (10:28)
[2018-10-29] MEDS: SERTRALINE HCL 50 MG TABLET PO SCH (10:29)
[2018-10-29] MEDS: LANSOPRAZOLE 30 MG TAB.RAP.DR PO SCH (10:29)
[2018-10-29] MEDS: MINERAL OIL/PETROLATUM,WHITE CREAM 114 GM TP SCH ×4 (10:30→22:46)
--- NOTE | 2018-10-29 11:12 | RADIOLOGY REPORT (SQ) ---
EXAM DESCRIPTION: CAROTID DOPPLER COMPLETED DATE/TIME: 10/29/2018 10:48 am REASON FOR STUDY: Recurrent syncope, Atrial fibrillation COMPARISON: None. TECHNIQUE: Grayscale ultrasound, Doppler velocity and spectra, and color Doppler images acquired of the extra-cranial carotid and vertebral arteries. Images stored on PACS. LIMITATIONS: None. FINDINGS: RIGHT CAROTID CCA Velocities: Within normal limits. ICA Velocities Peak systolic 0.57 m/s. End diastolic 0.2 m/s. Proximal ICA/CCA peak systolic ratio 1.0. Spectra normal. Mild plaque. LEFT CAROTID CCA Velocities: Within normal limits. ICA Velocities Peak systolic 0.78 m/s. End diastolic 0.23 m/s. Proximal ICA/CCA peak systolic ratio 1.1. Spectra normal. Mild plaque. VERTEBRAL ARTERIES: Antegrade flow. Normal waveforms. SUBCLAVIAN ARTERIES: No finding. OTHER: No other significant finding. IMPRESSION: NO HEMODYNAMICALLY SIGNIFICANT STENOSIS. COMMENT: Quality ID #[id number]: Velocity criteria are extrapolated from the diameter data as defined by t he Society of Radiologists in Ultrasound Consensus Conference. Radiology 2003: 229; 340-346. TECHNICAL DOCUMENTATION: JOB ID: [id number] [employer]- All Rights Reserved Reading location - IP/workstation name: [email or web address]
--- NOTE | 2018-10-29 20:20 | PDOC H&P ---
History of Present Illness Admission Date/PCP: 10/28/18 22:03 [facility] Patient complains of: Passed out History of Present Illness: ANA DEWITT is a 83 year old female known to my practice who was brought to the ED via EMS due to daughter reported unwitnessed fall in the toilet. Daughter reported initial episode followed patient using the commode for bowel movement and upon rising up from the toilet seat fell and made a loud thumb on the toilet fall. She activated EMS service and personnel evaluated patient on site and decided that she dose not need transfer to the hospital. Subsequent to departure of the EMS personnel, patient alerted daughter that she had to use the topilet again for bowel movement. Daughter claimed that she was fine until the moment she found her slumped between the toilet commode and sink while sitting on the toilet. She was intermittently responsive to daughter's question and she had to raise her voice to wake patient up. Her daughter subsequently alert the EMS service and patient was subsequently transferred to the ED. There was reported of possible hitting her head on the floor during the fall incidents. Patient subsequently complain about left hip pain and dizzy feeling. Daughter reported that patient recently started itching and picking on her skin. 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 Her initial evaluation in the ED was remarkable for elevated serum creatinine level with concern for JOSE R and episode of abnormal pause on her EKG with chronic atrial fibrillation. She was advised hospitalization for further evaluation and management. Her morbidities include hypertension and chronic atrial fibrillation. Past Medical History Cardiac Medical History: Reports: Atrial Fibrillation, Hypertension Musculoskeltal Medical History: Reports: Arthritis Psychiatric Medical History: Denies: Depression Social History Smoking Status: Never Smoker Frequency of Alcohol Use: None Hx Recreational Drug Use: No Drugs: None Hx Prescription Drug Abuse: No Family History Family History: Reviewed & Not Pertinent Parental Family History Reviewed: Yes Children Family History Reviewed: Yes Sibling(s) Family History Reviewed.: Yes Medication/Allergy Home Medications: Amlodipine Besylate [Norvasc 10 mg Tablet] 10 mg PO DAILY 07/09/17 Clopidogrel Bisulfate [Plavix 75 mg Tablet] 75 mg PO DAILY 07/09/17 Famotidine [Pepcid 40 mg Tablet] 40 mg PO DAILY 07/09/17 Furosemide [Lasix] 40 mg PO Q2D 07/09/17 Lansoprazole [Prevacid] 30 mg PO QPM 07/09/17 Metoprolol Tartrate [Lopressor] 50 mg PO Q12 #60 tablet 07/11/17 Potassium Chloride 10 meq PO DAILY #30 tablet.er 07/11/17 Allergies/Adverse Reactions: No Known Allergies Allergy (Verified 10/28/18 18:55) Review of Systems Constitutional: ABSENT: chills, fever(s), headache(s), weight gain, weight loss Eyes: ABSENT: visual disturbances Ears: PRESENT: hearing changes Nose, Mouth, and Throat: ABSENT: as per HPI, headache(s), mouth pain, sore throat, vertigo, other Cardiovascular: ABSENT: chest pain, dyspnea on exertion, edema, orthropnea, palpitations Respiratory: ABSENT: cough, hemoptysis Gastrointestinal: ABSENT: abdominal pain, constipation, diarrhea, hematemesis, hematochezia, nausea, vomiting Genitourinary: ABSENT: dysuria, hematuria Musculoskeletal: ABSENT: joint swelling Integumentary: ABSENT: rash, wounds Neurological: PRESENT: confusion - intermittent per daughter's report, syncope Psychiatric: PRESENT: anxiety - intermittent per daughter's report Endocrine: ABSENT: cold intolerance, heat intolerance, polydipsia, polyuria Hematologic/Lymphatic: ABSENT: easy bleeding, easy bruising, lymphadenopathy Allergic/Immunologic: ABSENT: seasonal rhinorrhea Physical Exam Vital Signs: Temp Pulse Resp BP Pulse Ox 98.9 F 94 16 127/73 H 98 10/29/18 07:26 10/29/18 07:26 10/29/18 07:26 10/29/18 07:26 10/29/18 07:26 Intake & Output 10/28/18 10/29/18 10/30/18 06:59 06:59 06:59 Weight 56.1 kg General appearance: PRESENT: no acute distress, well-developed, well-nourished Head exam: PRESENT: atraumatic, normocephalic Eye exam: PRESENT: conjunctiva pink, EOMI, PERRLA. ABSENT: scleral icterus Ear exam: PRESENT: normal external ear exam Mouth exam: PRESENT: moist Neck exam: PRESENT: full ROM. ABSENT: carotid bruit, JVD, lymphadenopathy, thyromegaly Respiratory exam: PRESENT: clear to auscultation dionne Cardiovascular exam: PRESENT: irregular rhythm, +S1, +S2. ABSENT: rubs Pulses: PRESENT: normal dorsalis pedis pul, +2 pedal pulses bilateral Vascular exam: PRESENT: normal capillary refill. ABSENT: pallor GI/Abdominal exam: PRESENT: normal bowel sounds, soft. ABSENT: distended, guarding, mass, organolmegaly, rebound, tenderness Rectal exam: PRESENT: deferred Extremities exam: ABSENT: pedal edema Musculoskeletal exam: PRESENT: deformity - related to multiple joints involvement with arthritis Neurological exam: PRESENT: alert, awake, oriented to person, oriented to place , oriented to time, oriented to situation, CN II-XII grossly intact, motor sensory deficit Psychiatric exam: PRESENT: appropriate affect, normal mood. ABSENT: homicidal ideation, suicidal ideation Skin exam: PRESENT: dry, intact, warm. ABSENT: cyanosis, rash Results Laboratory Results: I reviewed her lab results on [employer] and form significant aspect of my medical decision making on this case. Impressions: Head CT 10/28/18 19:17 IMPRESSION: NORMAL BRAIN CT WITHOUT CONTRAST. EVIDENCE OF ACUTE STROKE: NO. Hip X-Ray 10/28/18 19:17 IMPRESSION: NEGATIVE STUDY OF THE LEFT HIP AND PELVIS. NO RADIOGRAPHIC EVIDENCE OF ACUTE INJURY. Assessment & Plan - Diagnosis (5) HTN (hypertension) Qualifiers: Hypertension type: essential hypertension Qualified Code(s): I10 - Essential (primary) hypertension - Time Time Spent: 50 to 70 Minutes Medications reviewed and adjusted accordingly: Yes Anticipated discharge: Home with Homehealth Within: Other - Plan Summary Plan Summary: Admit to observation bed. Maintain on IV fluid hydration. Obtain complete echo and carotid doppler evaluation. Maintain on all appropriate preadmission medications. Obtain physical therapy evaluation for transfer, gait and balance stability.
[2018-10-29] MEDS ORDERED: MELATONIN 3 MG TABLET PO SCH (22:00)
[2018-10-30 06:05] LABS: ANION GAP 8 (5-19); BLOOD UREA NITROGEN 23 mg/dL (7-20); CALCIUM 8.5 mg/dL (8.4-10.2); CARBON DIOXIDE 24 mmol/L (22-30); CHLORIDE 110 mmol/L (98-107); GLUCOSE 85 mg/dL (75-110); POTASSIUM 3.9 mmol/L (3.6-5.0); SODIUM 142.2 mmol/L (137-145)
[2018-10-30] MEDS: LANSOPRAZOLE 30 MG TAB.RAP.DR PO SCH (06:05)
[2018-10-30] MEDS: METOPROLOL TARTRATE 50 MG TABLET PO SCH ×2 (06:05→09:34)
[2018-10-30 08:06] VITALS: BP 120/65
[2018-10-30] MEDS: MINERAL OIL/PETROLATUM,WHITE CREAM 114 GM TP SCH ×2 (09:33→14:03)
[2018-10-30] MEDS: AMLODIPINE BESYLATE 10 MG TABLET PO SCH (09:33)
[2018-10-30] MEDS: CLOPIDOGREL BISULFATE 75 MG TABLET PO SCH (09:34)
[2018-10-30] MEDS: ENOXAPARIN SODIUM INJ 30 MG/0.3 ML DISP.SYRIN SUBCUT SCH (09:34)
[2018-10-30] MEDS: SERTRALINE HCL 50 MG TABLET PO SCH (09:35)
[2018-10-30] MEDS: NORMAL SALINE 1000 ML 1,000 ML IV PRN (14:03)
--- NOTE | 2018-10-30 15:08 | XCELERA REPORT ---
[address] [address] Transthoracic Echocardiogram Report Name: ANA DEWITT Age: 83 yrs Gender: Female : 1935 Patient Status: Inpatient Patient Location: [address] [place] [address] Study Date: 10/29/2018 10:18 AM Procedure: A two-dimensional transthoracic echocardiogram with color flow and Doppler was performed. The study was technically difficult with many images being suboptimal in quality. Reason For Study: Recurrent syncope, chronic atrial fibrillation History: Recurrent syncope, chronic atrial fibrillation. Ordering Physician: VALENCIA BARNEY Performed By: Nella Alexis Interpretation Summary No True apical 2 chamber views obtained.Hence cannot comment on the apical anterior , the basal anterior, the basal inferior and apical inferior sanders.The mid anterior , the mid inferior and the rest of the LV sanders are mildly hypokinetic.LVEF is 45% to 50%.No LVH.Mildly dilated LV. There is no thrombus. The right ventricle is moderately dilated. The right ventricular systolic function is mildly reduced. The right atrium is moderately dilated. The left atrium is severely dilated. There is no evidence of mitral valve prolapse. There is no mitral valve stenosis. There is a moderate amount of mitral regurgitation There is no aortic valve stenosis There is no LVOT obstruction. There is a mild amount of aortic regurgitation There is no tricuspid stenosis. There is a mild to moderate amount of tricuspid regurgitation There is mild pulmonary hypertension by echo RVSP is 35 mm of Hg.This could be an underestimation of the RVSP. There is no pulmonic valvular stenosis. There is a mild amount of pulmonic regurgitation The aortic root is normal size. There is no pericardial effusion. MMode/2D Measurements & Calculations RVDd: 2.9 cm LVIDd: 5.1 cm FS: 21.6 % Ao root diam: 3.5 cm IVSd: 0.75 cm LVIDs: 4.0 cm EDV(Teich): 124.4 ml Ao root area: 9.5 cm2 LVPWd: 0.87 cm ESV(Teich): 70.4 ml EF(Teich): 43.4 % Doppler Measurements & Calculations Ao V2 max: AI max ana: LV V1 max PG: PA V2 max: 104.8 cm/sec 342.7 cm/sec 2.0 mmHg 91.3 cm/sec Ao max P.4 mmHg AI max P.0 mmHg LV V1 mean PG: PA max PG: Ao V2 mean: AI dec slope: 1.4 mmHg 3.3 mmHg 77.9 cm/sec LV V1 max: Ao mean P.6 mmHg 240.2 cm/sec2 70.4 cm/sec AI P1/2t: 417.9 msec LV V1 mean: Ao V2 VTI: 21.1 cm 55.4 cm/sec LV V1 VTI: 14.4 cm LV dP/dt: 943.3 mmHg/s PI max ana: TR max ana: 209.8 cm/sec 248.8 cm/sec PI max P.6 mmHg TR max P.9 mmHg PI dec slope: 182.5 cm/sec2 Left Ventricle LV diastolic function could not be adequately assessed due to atrial fibrilation. No True apical 2 chamber views obtained.Hence cannot comment on the apical anterior , the basal anterior, the basal inferior and apical inferior sanders.The mid anterior , the mid inferior and the rest of the LV sanders are mildly hypokinetic.LVEF is 45% to 50%.No LVH.Mildly dilated LV. There is no thrombus. Right Ventricle The right ventricle is moderately dilated. The right ventricular systolic function is mildly reduced. Atria The right atrium is moderately dilated. The left atrium is severely dilated. The interatrial septum is intact with no evidence for an atrial septal defect. Mitral Valve There is no evidence of mitral valve prolapse. There is no vegetation seen on the mitral valve. There is no mitral valve stenosis. There is a moderate amount of mitral regurgitation. Aortic Valve There is no aortic valvular vegetation. There is no aortic valve stenosis. There is no LVOT obstruction. There is a mild amount of aortic regurgitation. Tricuspid Valve There is no tricuspid stenosis. There is a mild to moderate amount of tricuspid regurgitation. There is mild pulmonary hypertension by echo. RVSP is 35 mm of Hg.This could be an underestimation of the RVSP. Pulmonic Valve There is no pulmonic valvular stenosis. There is a mild amount of pulmonic regurgitation. Great Vessels The aortic root is normal size. Effusions There is no pericardial effusion. : VALENCIA BARNEY > Argelia Ny
--- NOTE | 2018-10-30 15:47 | PDOC DISCHARGE SUMMARY ---
General - Admit/Disc Date/PCP Admission Date/Primary Care Provider: 10/28/18 22:03 VALENCIA ECTOR Discharge Date: 10/30/18 - Additional Information Discharge Diet: Cardiac Discharge Activity: Activity As Tolerated, Slowly Increase Activity Prescriptions: Amlodipine Besylate [Norvasc 5 mg Tablet] 5 mg PO DAILY #30 tablet Melatonin [Melatonin 3 mg Tablet] 3 mg PO QHS #30 tablet Mineral Oil/Petrolatum,White [Eucerin Cream 114 gm] 1 applic TP QID #1 jar Sertraline HCl 12.5 mg PO DAILY #15 tablet Home Medications: Clopidogrel Bisulfate [Plavix 75 mg Tablet] 75 mg PO DAILY 07/09/17 Famotidine [Pepcid 40 mg Tablet] 40 mg PO DAILY 07/09/17 Furosemide [Lasix] 40 mg PO Q2D 07/09/17 Lansoprazole [Prevacid] 30 mg PO QPM 07/09/17 Metoprolol Tartrate [Lopressor] 50 mg PO Q12 #60 tablet 07/11/17 Potassium Chloride 10 meq PO DAILY #30 tablet.er 07/11/17 Amlodipine Besylate [Norvasc 5 mg Tablet] 5 mg PO DAILY #30 tablet 10/30/18 Melatonin [Melatonin 3 mg Tablet] 3 mg PO QHS #30 tablet 10/30/18 Mineral Oil/Petrolatum,White [Eucerin Cream 114 gm] 1 applic TP QID #1 jar 10/30 Sertraline HCl 12.5 mg PO DAILY #15 tablet 10/30/18 History of Present Illness Patient complains of: passing out History of Present Illness: ANA DEWITT is a 83 year old female known to my practice who was brought to the ED via EMS due to daughter reported unwitnessed fall in the toilet. Daughter reported initial episode followed patient using the commode for bowel movement and upon rising up from the toilet seat fell and made a loud thumb on the toilet fall. She activated EMS service and personnel evaluated patient on site and decided that she dose not need transfer to the hospital. Subsequent to departure of the EMS personnel, patient alerted daughter that she had to use the topilet again for bowel movement. Daughter claimed that she was fine until the moment she found her slumped between the toilet commode and sink while sitting on the toilet. She was intermittently responsive to daughter's question and she had to raise her voice to wake patient up. Her daughter subsequently alert the EMS service and patient was subsequently transferred to the ED. There was reported of possible hitting her head on the floor during the fall incidents. Patient subsequently complain about left hip pain and dizzy feeling. Daughter reported that patient recently started itching and picking on her skin. 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 Her initial evaluation in the ED was remarkable for elevated serum creatinine level with concern for JOSE R and episode of abnormal pause on her EKG with chronic atrial fibrillation. She was advised hospitalization for further evaluation and management. Her morbidities include hypertension and chronic atrial fibrillation. Hospital Course Hospital Course: There was no recurrent syncopal episode or fall while on admission. She did demonstrate period of hypotension necessitating withholding of her Metoprolol schedule dose. She denied any associated dizziness or vertigo. No chest pain or difficulty with breathing. Her carotid doppler revealed no hemodynamically significant stenosis and her echocardiogram suggested LVEF at 45-50% with mild chamber dilatation. Her renal indices did improved significantly with IV fluid support while on admission. I did emphasized to patient and daughter regarding adequate oral hydration efforts. There was concern about possible anxiety and poor sleep pattern prior to her episodes of syncope. She was managed with low dose Sertraline 12.5 mg po daily and Melatonin 3 mg po qhs with satisfactory result so far. She will be discharged home today with [facility] services and follow up in the office as instructed upon discharge. Physical Exam Vital Signs: Temp Pulse Resp BP Pulse Ox 98.7 F 74 16 120/65 99 10/30/18 07:43 10/30/18 07:43 10/30/18 07:43 10/30/18 07:43 10/30/18 07:43 Intake & Output 10/29/18 10/30/18 10/31/18 06:59 06:59 06:59 Intake Total 2606 275 Balance 2606 275 Weight 56.1 kg 57.2 kg General appearance: PRESENT: no acute distress, well-developed, well-nourished Head exam: PRESENT: atraumatic, normocephalic Eye exam: PRESENT: conjunctiva pink, EOMI, PERRLA. ABSENT: scleral icterus Ear exam: PRESENT: normal external ear exam Mouth exam: PRESENT: moist Teeth exam: PRESENT: poor dentation Respiratory exam: PRESENT: clear to auscultation dionne Cardiovascular exam: PRESENT: irregular rhythm, +S1, +S2. ABSENT: diastolic murmur, systolic murmur Vascular exam: ABSENT: pallor GI/Abdominal exam: PRESENT: normal bowel sounds, soft. ABSENT: distended, guarding, mass, organolmegaly, rebound, tenderness Extremities exam: ABSENT: pedal edema Neurological exam: PRESENT: alert, awake, oriented to person, oriented to place , oriented to time, oriented to situation, CN II-XII grossly intact. ABSENT: motor sensory deficit Psychiatric exam: PRESENT: appropriate affect, normal mood. ABSENT: homicidal ideation, suicidal ideation Results Laboratory Results: 10/30/18 05:39 10/30/18 05:39 Sodium 142.2 Potassium 3.9 Chloride 110 H Carbon Dioxide 24 Anion Gap 8 BUN 23 H Creatinine 1.03 Est GFR ( Amer) > 60 Est GFR (Non-Af Amer) 51 L Glucose 85 Calcium 8.5 Impressions: Head CT 10/28/18 19:17 IMPRESSION: NORMAL BRAIN CT WITHOUT CONTRAST. EVIDENCE OF ACUTE STROKE: NO. Hip X-Ray 10/28/18 19:17 IMPRESSION: NEGATIVE STUDY OF THE LEFT HIP AND PELVIS. NO RADIOGRAPHIC EVIDENCE OF ACUTE INJURY. Carotid Doppler Study 10/29/18 00:00 IMPRESSION: NO HEMODYNAMICALLY SIGNIFICANT STENOSIS. Qualifiers - * PATIENT BEING DISCHARGED WITH ANY OF THE FOLLOWING DIAGNOSIS: No Plan Discharge Plan: D/C home today with [facility] services. Follow up in the office as instructed upon discharge.
== END 2018-10-30 16:32 | disposition home or self-care (01) ==
LOC: ER 18:24 → EH 22:03 → 3N 10-29
PROVIDERS: ADMIT Internal Medicine Geriatric Medicine; ATTEND Internal Medicine Geriatric Medicine
DX: R55 Syncope and collapse (principal); N17.9 Acute kidney failure, unspecified; I48.2 Chronic atrial fibrillation; M15.9 Polyosteoarthritis, unspecified; I10 Essential (primary) hypertension; F43.22 Adjustment disorder with anxiety; M25.552 Pain in left hip; L29.9 Pruritus, unspecified; R94.31 Abnormal electrocardiogram [ECG] [EKG]; W18.11XA Fall from or off toilet without subsequent striking against object, initial encounter; I95.9 Hypotension, unspecified; R41.0 Disorientation, unspecified; Z79.899 Other long term (current) drug therapy; Z79.02 Long term (current) use of antithrombotics/antiplatelets; Z23 Encounter for immunization
CPT/HCPCS: 93005; 99285; 96360; 96361; 36415 ×2; 82553; 82550; 85025; 85610; 85730; 82272; 80048; 80053; 81001; 84484; 93306; 93880; 73502; 70450; 90686; 93010; G0378 ×2; A9270 ×12; J1650 ×2; J7030 ×3; J3490

== ENCOUNTER 2020-02-13 19:18 | Emergency (ER) | payer MEDICARE, OTHER ==
[2020-02-13] MEDS ORDERED: ACETAMINOPHEN 325 MG TABLET PO ONE (20:31)
--- NOTE | 2020-02-13 21:17 | RADIOLOGY REPORT (SQ) ---
CT HEAD WITHOUT IV CONTRAST EXAM DATE: 02/13/2020 8:31 PM CDT HISTORY: Dementia/Fall/Plavix. COMPARISON: 10/28/2018 TECHNIQUE: CT scan of the brain without IV contrast. This exam was performed according to our departmental dose-optimization program, which includes automated exposure control, adjustment of the mA and/or kV according to patient size and/or use of iterative reconstruction technique. FINDINGS: There are scattered areas of hypoattenuation within the periventricular white matter, which likely represent chronic microvascular ischemia. No evidence of acute infarction, intracranial hemorrhage, extra-axial fluid collection, or midline shift. No air-fluid levels are seen in the paranasal sinuses to suggest acute sinusitis. No depressed skull fracture. IMPRESSION: 1. No acute intracranial findings. 2. Senescent changes with chronic microvascular ischemia.
--- NOTE | 2020-02-13 21:18 | ER Document Report ---
Entered by ELISA PALOMARES SCRIBE 02/13/202030 Acting as scribe for:BALDEV HOWE DO ED Fall - General Chief Complaint: Fall Stated Complaint: FALL Time Seen by Provider: 02/13/20 20:24 Primary Care Provider: VALENCIA BARNEY MD [Primary Care Provider] - Follow up as needed Information source: Patient, Relative - Daughter Notes: 84-year-old female with dementia presents with daughter to the emergency department after a fall later this evening. Patient's daughter explains that they were at home and she heard a "big thud". Daughter stated that she found patient on the kitchen floor without her cane. Daughter states that patient was laying on back with her head up against the cream tester. Daughter states that patient falls about once a year. Patient's daughter notes that patient has a shuffling gait and states that patient does not like to use her cane to walk. Daughter wanted to have patient checked out after fall due to patient having dementia. TRAVEL OUTSIDE OF THE [place] IN LAST 30 DAYS: No - Related data Allergies/Adverse Reactions: No Known Allergies Allergy (Verified 02/13/20 21:30) Past Medical History - General Information source: Patient, Relative - Daughter - Social History Smoking Status: Never Smoker Cigarette use (# per day): No Chew tobacco use (# tins/day): No Lives with: Family Family History: Reviewed & Not Pertinent - Past Medical History Cardiac Medical History: Reports: Hx Atrial Fibrillation, Hx Hypertension Musculoskeletal Medical History: Reports Hx Arthritis Psychiatric Medical History: Reports: Hx Dementia Surgical Hx: Negative - Immunizations Hx Pneumococcal Vaccination: 12/30/14 Review of Systems - Review of Systems Constitutional: No symptoms reported EENT: No symptoms reported Cardiovascular: No symptoms reported Respiratory: No symptoms reported Gastrointestinal: No symptoms reported Genitourinary: No symptoms reported Female Genitourinary: No symptoms reported Musculoskeletal: See HPI. denies: Back pain, Muscle pain, Neck pain Skin: No symptoms reported Hematologic/Lymphatic: No symptoms reported Neurological/Psychological: See HPI. denies: Gait changes -: Yes All other systems reviewed and negative Physical Exam - Vital signs Vitals: Temp Pulse Resp BP Pulse Ox 97.7 F 68 16 120/95 H 100 02/13/20 21:51 02/13/20 21:51 02/13/20 21:51 02/13/20 21:51 02/13/20 21:51 - Notes Notes: Physical Exam: General: Alert, pleasantly demented. HEENT: Normocephalic. Atraumatic. PERRL. Extraocular movements intact. Oropharynx clear. Neck: Supple. Non-tender. Respiratory: No respiratory distress. Clear and equal breath sounds bilaterally. Cardiovascular: Regular rate and rhythm. Abdominal: Normal Inspection. Non-tender. No distension. Normal Bowel Sounds. Back: No gross abnormalities. Extremities: Moves all four extremities. Upper extremities: Normal inspection. Normal ROM. Lower extremities: Normal inspection. No edema. Normal ROM. Neurological: Normal cognition. AAOx4. Normal speech. Psychological: Normal affect. Normal Mood. Skin: Warm. Dry. Normal color. Course - Re-evaluation Re-evalutation: 02/13/20 21:18 Delightful 84 year old female here with daughter after what is presumed to be mechanical fall. Daughter heard fall and head was against object on kitchen, but fall was unwitnessed. She is supposed to use her cane but over the last week has not been using it. Daughter has been telling her she will end up in the hospital. Pt is cheerful and pleasant. No outward appearance of injury but due to her advanced age and dementia and taking plavix I felt it reasonable to image her brain looking for sah or sdh. She certainly would have frail bridging veins. Thankfully the ct is unremarkable and she can follow up locally to discuss whether she should be on Plavix is one thought. I reviewed the studies with the daughter and she expressed understanding. - Vital Signs Vital signs: Temp Pulse Resp BP Pulse Ox 98.0 F 74 18 123/84 100 02/13/20 22:50 02/13/20 22:50 02/13/20 22:50 02/13/20 22:50 02/13/20 22:50 - Diagnostic Test Radiology reviewed: Image reviewed, Reports reviewed Discharge - Discharge Clinical Impression: Fall Qualifiers: Encounter type: initial encounter Qualified Code(s): W19.XXXA - Unspecified fall, initial encounter Dementia Qualifiers: Dementia type: unspecified type Dementia behavioral disturbance: without behavioral disturbance Qualified Code(s): F03.90 - Unspecified dementia without behavioral disturbance Condition: Good Disposition: HOME, SELF-CARE Instructions: Dementia ([facility]) Additional Instructions: Take tylenol as needed for pain. Use your cane when you are walking. Please return here for any problems or any concerns. Be careful with walking and have someone nearby to help as you have an increased risk of falling. Forms: Elevated Blood Pressure Referrals: VALENCIA BARNEY MD [Primary Care Provider] - Follow up as needed I personally performed the services described in the documentation, reviewed and edited the documentation which was dictated to the scribe in my presence, and it accurately records my words and actions.
[2020-02-13 22:47] VITALS: BP 123/84
== END 2020-02-13 22:36 | disposition home or self-care (01) ==
LOC: ER 19:18
DX: F03.90 Unspecified dementia, unspecified severity, without behavioral disturbance, psychotic disturbance, mood disturbance, and anxiety (principal); W18.30XA Fall on same level, unspecified, initial encounter; Y92.000 Kitchen of unspecified non-institutional (private) residence as the place of occurrence of the external cause; Z79.02 Long term (current) use of antithrombotics/antiplatelets; I48.91 Unspecified atrial fibrillation; I10 Essential (primary) hypertension
CPT/HCPCS: 99284; 70450; A9270

== ENCOUNTER 2020-10-06 16:34 | Emergency (ER) | payer MEDICARE, OTHER ==
[2020-10-06 17:33] LABS: ABSOLUTE BASOPHILS # (AUTO) 0.1 10^3/uL (0.0-0.2); ABSOLUTE EOSINOPHILS # (AUTO) 0.2 10^3/uL (0.0-0.6); ABSOLUTE LYMPHOCYTES (AUTO) 1.2 10^3/uL (0.5-4.7); ABSOLUTE MONOCYTES (AUTO) 0.4 10^3/uL (0.1-1.4); ABSOLUTE NEUT (AUTO) 2.4 10^3/uL (1.7-8.2); BASOPHILS % (AUTO) 1.3 % (0-2); EOSINOPHILS % (AUTO) 3.7 % (0-6); HEMATOCRIT 35.1 % (36.0-47.0); HEMOGLOBIN 11.8 g/dL (12.0-15.5); MEAN CORPUSCULAR HEMOGLOBIN 30.7 pg (27.0-33.4); MEAN CORPUSCULAR HGB CONC 33.5 g/dL (32.0-36.0); MEAN CORPUSCULAR VOLUME 92 fl (80-97); PLATELET COUNT 232 10^3/uL (150-450); RED BLOOD COUNT 3.83 10^6/uL (3.72-5.28); RED CELL DISTRIBUTION WIDTH 14.1 % (11.5-14.0); TOTAL CELLS COUNTED % (AUTO) 100 %; WHITE BLOOD COUNT 4.2 10^3/uL (4.0-10.5)
[2020-10-06 17:57] LABS: ALBUMIN 3.4 g/dL (3.5-5.0); ALKALINE PHOSPHATASE 81 U/L (38-126); ANION GAP 9 (5-19); ASPARTATE AMINO TRANSFERASE 22 U/L (14-36); BILIRUBIN,DIRECT 0.1 mg/dL (0.0-0.4); BILIRUBIN,TOTAL 0.5 mg/dL (0.2-1.3); BLOOD UREA NITROGEN 30 mg/dL (7-20); CALCIUM 8.6 mg/dL (8.4-10.2); CARBON DIOXIDE 26 mmol/L (22-30); CHLORIDE 101 mmol/L (98-107); CREATINE KINASE 35 U/L (30-135); GLUCOSE 123 mg/dL (75-110); POTASSIUM 4.1 mmol/L (3.6-5.0); TOTAL PROTEIN 5.9 g/dL (6.3-8.2)
[2020-10-06 18:12] LABS: CREATINE KINASE MB 0.39 ng/mL (<4.55)
[2020-10-06 18:14] LABS: TROPONIN I < 0.012 ng/mL
--- NOTE | 2020-10-06 19:41 | ER Document Report ---
ED General - General Chief Complaint: Near Syncope Stated Complaint: SYNCOPE Time Seen by Provider: 10/06/20 19:40 Primary Care Provider: VALENCIA BARNEY MD [Primary Care Provider] - Follow up as needed TRAVEL OUTSIDE OF THE [place] IN LAST 30 DAYS: No - HPI Notes: 85-year-old female arrives via EMS for possible syncopal event at home. Per EMS/nursing report, patient was having a bowel movement and then had a syncopal episode, she was found still sitting on the toilet. Initial blood pressure 88/45, she received IV fluids via EMS. Patient states she does not remember what happened today. She currently denies complaints. HPI considered limited given dementia. - Related Data Allergies/Adverse Reactions: No Known Allergies Allergy (Verified 10/06/20 20:05) Past Medical History - General Cannot obtain history due to: Dementia - Social History Smoking Status: Never Smoker Family History: Reviewed & Not Pertinent - Past Medical History Cardiac Medical History: Reports: Hx Atrial Fibrillation, Hx Congestive Heart Failure, Hx Hypertension Renal/ Medical History: Denies: Hx Peritoneal Dialysis Musculoskeletal Medical History: Reports Hx Arthritis Psychiatric Medical History: Reports: Hx Dementia Denies: Hx Depression - Immunizations Hx Pneumococcal Vaccination: 12/30/14 Review of Systems - Review of Systems -: Yes ROS unobtainable due to patient's medical condition - Currently denying complaints, has history of dementia Physical Exam - Vital signs Vitals: Temp 97.9 F 10/06/20 16:50 - General General appearance: Appears well, Alert In distress: None - HEENT Head: Normocephalic, Atraumatic Extraocular movements intact: Yes Pupils: PERRL - Respiratory Breath sounds: Normal - Cardiovascular Rhythm: Regular Heart sounds: Normal auscultation - Abdominal Tenderness: Nontender - Extremities General upper extremity: Normal ROM General lower extremity: Normal ROM. No: Edema - Neurological Notes: Face is symmetric and speech is clear, cranial nerves II through XII grossly intact, strength symmetric between upper extremities, able to push against resistance, strength symmetric between lower extremities, sensation grossly intact, ambulatory with steady gait - Psychological Associated symptoms: Normal affect - Skin Skin Temperature: Warm Course - Re-evaluation Re-evalutation: 85-year-old female had syncopal event while having a bowel movement today, currently denying complaints, history of dementia. On exam she is well-appeari ng, nontoxic, hemodynamically stable, she has no gross focal neuro deficits, physical exam otherwise on remarkable. Suspect she had a vasovagal reaction while having a bowel movement, this could also account for the transient hypotension that she experienced. I have a low suspicion that she would have had acute intracranial hemorrhage during this episode, however will obtain CT head to officially rule out. 10/06/20 21:37 No leukocytosis or left shift. Hemoglobin at baseline. Electrolytes okay. Creatinine elevated however improved from previous. Troponin negative. No UTI. Head CT without ICH. Patient was stable at time of discharge, her ride arrived to pick her up. - Vital Signs Vital signs: Temp Pulse Resp BP Pulse Ox 98.1 F 86 18 130/81 H 98 10/06/20 21:31 10/06/20 21:08 10/06/20 21:31 10/06/20 21:31 10/06/20 20:31 - Laboratory Result Diagrams: 10/06/20 16:50 10/06/20 16:50 Laboratory results interpreted by me: 10/06/20 10/06/20 16:50 16:50 Hgb 11.8 L Hct 35.1 L RDW 14.1 H Sodium 135.9 L BUN 30 H Creatinine 1.29 H Est GFR ( Amer) 47 L Est GFR (MDRD) Non-Af 39 L Glucose 123 H Total Protein 5.9 L Albumin 3.4 L - Diagnostic Test Radiology reviewed: Image reviewed, Reports reviewed - EKG Interpretation by Me Additional EKG results interpreted by me: EKG is interpreted by me. Atrial fibrillation, rate 71. Narrow QRS, QTC within normal limits. Nonspecific ST changes. No STEMI Discharge - Discharge Clinical Impression: Vasovagal response Disposition: HOME, SELF-CARE Additional Instructions: Please have close follow-up with your primary care doctor. Return to the em ergency department for any concerning worsening symptoms. Referrals: VALENCIA BARNEY MD [Primary Care Provider] - Follow up as needed
[2020-10-06 20:30] LABS: APPEARANCE,URINE CLEAR; BILIRUBIN,URINE NEGATIVE (NEGATIVE); COLOR,URINE YELLOW; GLUCOSE, URINE NEGATIVE (NEGATIVE); KETONES,URINE NEGATIVE (NEGATIVE); LEUKOCYTE ESTERASE,URINE NEGATIVE (NEGATIVE); NITRITE,URINE NEGATIVE (NEGATIVE); PROTEIN,URINE NEGATIVE (NEGATIVE); URINE SPECIFIC GRAVITY 1.015; UROBILINOGEN,URINE NEGATIVE mg/dL (<2.0)
--- NOTE | 2020-10-06 21:20 | RADIOLOGY REPORT (SQ) ---
CT HEAD WITHOUT IV CONTRAST HISTORY: Syncope. COMPARISON: 02/13/2020 TECHNIQUE: CT scan of the brain was performed without IV contrast. This exam was performed according to our departmental dose-optimization program, which includes automated exposure control, adjustment of the mA and/or kV according to patient size and/or use of iterative reconstruction technique. FINDINGS: There are scattered areas of hypoattenuation within the periventricular white matter, which likely represent chronic microvascular ischemia. No evidence of acute infarction, intracranial hemorrhage, extra-axial fluid collection, or midline shift. No air-fluid levels are seen in the paranasal sinuses to suggest acute sinusitis. No depressed skull fracture. IMPRESSION: 1. No acute intracranial findings. 2. Senescent changes with chronic microvascular ischemia.
[2020-10-06 21:47] VITALS: BP 130/81
--- NOTE | 2020-10-07 06:52 | EKG REPORT ---
SEVERITY:- ABNORMAL ECG - ATRIAL FIBRILLATION, V-RATE 58-83 NONSPECIFIC T ABNORMALITIES, ANT-LAT LEADS : Confirmed by: Aamir Cameron MD 07-Oct-2020 06:52:18
== END 2020-10-06 22:39 | disposition home or self-care (01) ==
LOC: ER 16:34
DX: R55 Syncope and collapse (principal); F03.90 Unspecified dementia, unspecified severity, without behavioral disturbance, psychotic disturbance, mood disturbance, and anxiety; I10 Essential (primary) hypertension; I48.91 Unspecified atrial fibrillation
CPT/HCPCS: 36415; 70450; 80053; 81001; 82550; 82553; 84484; 85025; 93005; 93010; 99285